=== PATIENT | male | born 1945 | race Two or more races ===

== ENCOUNTER 2018-03-09 11:23 | Outpatient (CLI) | payer OTHER, MEDICARE ==
[2018-03-09] MEDS ORDERED: FLUMAZENIL 0.5 MG/5 ML MDV IVP ONE (11:51)
[2018-03-09] MEDS ORDERED: NALOXONE HCL 0.4 MG/ML INJ ONE (11:51)
[2018-03-09] MEDS ORDERED: fentaNYL 100 MCG/2 ML INJ ONE (11:52)
[2018-03-09] MEDS ORDERED: MIDAZOLAM 2 MG/2 ML VIAL ONE (11:52)
[2018-03-09] MEDS ORDERED: MIDAZOLAM 2 MG/2 ML VIAL IVP PRN ×2 (12:04→12:30)
[2018-03-09] MEDS ORDERED: fentaNYL 100 MCG/2 ML INJ IVP PRN ×2 (12:04→12:30)
[2018-03-09] MEDS ORDERED: NALOXONE HCL 0.4 MG/ML INJ IVP PRN ×2 (12:04→12:30)
[2018-03-09] MEDS ORDERED: MEPERIDINE 25 MG/ML SYR IVP PRN ×2 (12:04→12:30)
[2018-03-09] MEDS ORDERED: FLUMAZENIL 0.5 MG/5 ML MDV IVP PRN ×2 (12:04→12:30)
[2018-03-09] MEDS ORDERED: NS 1,000 ML IV SCH ×2 (12:15→12:30)
[2018-03-09] MEDS ORDERED: GADOBUTROL 10 ML VIAL IVP ONE (12:38)
--- NOTE | 2018-03-09 13:06 | PDPROPOC ---
Sedation Plan of Care Sedation Plan of Care: vital signs stable, mental status noted, patient educated of risks, benefits, alternatives, patient can tolerate sedation ASA Classification: ASA 3 Planned drugs: fentanyl, midazolam Mallampati Score: Class 2 Mallampati Reference Image: Patient passed 3-3-2 rule?: Yes
--- NOTE | 2018-03-09 13:06 | PDGENHP ---
History & Physical Chief Complaint: claustrophobic, elevated psa History of Present Illness: needs pelvic mri, elevated psa, claustrophobic Cardiorespiratory Assessment: regular heart rate, lungs clear
[2018-03-09 15:12] VITALS: BP 102/75
== END 2018-03-09 15:11 | disposition home or self-care (01) ==
LOC: FIMAGING 11:23
DX: N40.2 Nodular prostate without lower urinary tract symptoms (principal); F40.240 Claustrophobia
CPT/HCPCS: 72197; 76377; A9585; J2250; J3010; 82565-PO; J2310